=== PATIENT | male | born 1955 | race Two or more races ===

== ENCOUNTER 2018-05-06 14:48 | Emergency (ER) | payer OTHER, BC ==
--- NOTE | 2018-05-06 16:08 | ER Document Report ---
ED Medical Screen (RME) - General Chief Complaint: Arm Pain Stated Complaint: ELBOW PAIN Time Seen by Provider: 05/06/18 16:00 Notes: 62-year-old male patient had his left elbow open for removal of some bone that was rubbing on another bone on 03/31/2018 at the [facility]. Last night he noted some fluid coming out of the surgical wound and this morning some pus draining. I have greeted and performed a rapid initial assessment of this patient. A comprehensive ED assessment and evaluation of the patient, analysis of test results and completion of the medical decision making process will be conducted by additional ED providers. TRAVEL OUTSIDE OF THE [place] IN LAST 30 DAYS: No - Related Data Allergies/Adverse Reactions: Penicillins Adverse Reaction (Verified 05/06/18 16:07) Past Medical History - Social History Chew tobacco use (# tins/day): No Frequency of alcohol use: None Drug Abuse: None - Past Medical History Cardiac Medical History: Reports: Hx Congestive Heart Failure, Hx Hypercholesterolemia, Hx Hypertension Denies: Hx Coronary Artery Disease, Hx Heart Attack Pulmonary Medical History: Denies: Hx Asthma, Hx Bronchitis, Hx COPD, Hx Pneumonia Neurological Medical History: Denies: Hx Cerebrovascular Accident, Hx Seizures Renal/ Medical History: Denies: Hx Peritoneal Dialysis Musculoskeltal Medical History: Reports Hx Arthritis Psychiatric Medical History: Denies: Hx Depression Past Surgical History: Reports: Hx Orthopedic Surgery - Left elbow, Left hip replacement - Immunizations Hx Diphtheria, Pertussis, Tetanus Vaccination: No Physical Exam - Vital signs Vitals: Temp Pulse Resp BP Pulse Ox 97.8 F 77 16 120/53 L 97 05/06/18 14:55 05/06/18 14:55 05/06/18 14:55 05/06/18 14:55 05/06/18 14:55 Course - Vital Signs Vital signs: Temp Pulse Resp BP Pulse Ox 97.8 F 77 16 120/53 L 97 05/06/18 14:55 05/06/18 14:55 05/06/18 14:55 05/06/18 14:55 05/06/18 14:55 Doctor's Discharge - Discharge Referrals: KATERINA SALMERON MD [Primary Care Provider] - Follow up as needed
--- NOTE | 2018-05-06 16:59 | RADIOLOGY REPORT (SQ) ---
EXAM DESCRIPTION: ELBOW LEFT OVER 2 VIEWS COMPLETED DATE/TIME: 05/06/2018 4:45 pm REASON FOR STUDY: Postoperative wound infection COMPARISON: None. NUMBER OF VIEWS: Four views. TECHNIQUE: AP, lateral, and both oblique radiographic images acquired of the left elbow. LIMITATIONS: None. FINDINGS: MINERALIZATION: Normal. BONES: The head of the radius has been resected. JOINT: There appears to be a small joint effusion. SOFT TISSUES: No soft tissue swelling. No foreign body. OTHER: No other significant finding. IMPRESSION: There appears to be a small joint effusion. There is no evidence of osteomyelitis. TECHNICAL DOCUMENTATION: JOB ID: [id number] [employer]- All Rights Reserved Reading location - IP/workstation name: [email or web address]
[2018-05-06 17:55] LABS: ABSOLUTE EOSINOPHILS # (AUTO) 0.3 10^3/uL (0.0-0.6); ABSOLUTE LYMPHOCYTES (AUTO) 2.3 10^3/uL (0.5-4.7); ABSOLUTE MONOCYTES (AUTO) 1.2 10^3/uL (0.1-1.4); ABSOLUTE NEUT (AUTO) 4.6 10^3/uL (1.7-8.2); BASOPHILS % (AUTO) 0.5 % (0-2); EOSINOPHILS % (AUTO) 3.4 % (0-6); HEMATOCRIT 41.7 % (37.9-51.0); HEMOGLOBIN 14.4 g/dL (13.5-17.0); LYMPHOCYTES % (AUTO) 27.2 % (13-45); MEAN CORPUSCULAR HEMOGLOBIN 33.1 pg (27.0-33.4); MEAN CORPUSCULAR HGB CONC 34.6 g/dL (32.0-36.0); MEAN CORPUSCULAR VOLUME 96 fl (80-97); MONOCYTES % (AUTO) 14.4 % (3-13); PLATELET COUNT 242 10^3/uL (150-450); RED BLOOD COUNT 4.35 10^6/uL (4.35-5.55); RED CELL DISTRIBUTION WIDTH 14.2 % (11.5-14.0); SEGMENTED NEUTROPHILS % (AUTO) 54.5 % (42-78); TOTAL CELLS COUNTED % (AUTO) 100 %; WHITE BLOOD COUNT 8.5 10^3/uL (4.0-10.5)
[2018-05-06 18:11] LABS: ALANINE AMINOTRANSFERASE 43 U/L (21-72); ALBUMIN 4.8 g/dL (3.5-5.0); ALKALINE PHOSPHATASE 58 U/L (38-126); ANION GAP 15 (5-19); ASPARTATE AMINO TRANSFERASE 41 U/L (17-59); BILIRUBIN,DIRECT 0.3 mg/dL (0.0-0.4); BILIRUBIN,TOTAL 0.6 mg/dL (0.2-1.3); BLOOD UREA NITROGEN 24 mg/dL (7-20); CALCIUM 9.8 mg/dL (8.4-10.2); CARBON DIOXIDE 22 mmol/L (22-30); CHLORIDE 102 mmol/L (98-107); GLUCOSE 110 mg/dL (75-110); POTASSIUM 4.6 mmol/L (3.6-5.0); SODIUM 139.4 mmol/L (137-145)
[2018-05-06] MEDS ORDERED: DOXYCYCLINE HYCLATE 100 MG TABLET PO ONE (18:46)
--- NOTE | 2018-05-06 18:47 | ER Document Report ---
ED General - General Chief Complaint: Arm Pain Stated Complaint: ELBOW PAIN Time Seen by Provider: 05/06/18 16:00 Notes: Patient is a 62-year-old male who had a partial bone resection of the left elbow in March 2018 who presents with concerns of possible infection over the surgical incisional site along the lateral epicondyle. Patient reports that [facility]. Patient reports that the most proximal aspect of the wound has become swollen and painful. He does report that he is been picking at the area. He has noted purulent drainage from the area. He notes that it is a dull , throbbing, constant pain worsened by touching the area. He has not had fever or constitutional symptoms. He has not yet followed up with his surgeon regarding today's concerns. Symptoms have overall been worsening since onset. Nothing improves the symptoms. TRAVEL OUTSIDE OF THE [place] IN LAST 30 DAYS: No - Related Data Allergies/Adverse Reactions: Penicillins Adverse Reaction (Verified 05/06/18 16:07) Past Medical History - General Information source: Patient - Social History Smoking Status: Former Smoker Chew tobacco use (# tins/day): No Frequency of alcohol use: None Drug Abuse: None Lives with: Alone Family History: Reviewed & Not Pertinent Patient has suicidal ideation: No Patient has homicidal ideation: No - Past Medical History Cardiac Medical History: Reports: Hx Congestive Heart Failure, Hx Hypercholesterolemia, Hx Hypertension Denies: Hx Coronary Artery Disease, Hx Heart Attack Pulmonary Medical History: Denies: Hx Asthma, Hx Bronchitis, Hx COPD, Hx Pneumonia Neurological Medical History: Denies: Hx Cerebrovascular Accident, Hx Seizures Renal/ Medical History: Denies: Hx Peritoneal Dialysis Musculoskeletal Medical History: Reports Hx Arthritis Psychiatric Medical History: Denies: Hx Depression Past Surgical History: Reports: Hx Orthopedic Surgery - Left elbow, Left hip replacement - Immunizations Hx Diphtheria, Pertussis, Tetanus Vaccination: No Review of Systems - Review of Systems Notes: Constitutional: Negative for fever. HENT: Negative for sore throat. Eyes: Negative for visual changes. Cardiovascular: Negative for chest pain. Respiratory: Negative for shortness of breath. Gastrointestinal: Negative for abdominal pain, vomiting or diarrhea. Genitourinary: Negative for dysuria. Musculoskeletal: Negative for back pain. Skin: Positive for left elbow incisional infection Neurological: Negative for headaches, weakness or numbness. 10 point ROS negative except as marked above and in HPI. Physical Exam - Vital signs Vitals: Temp Pulse Resp BP Pulse Ox 97.8 F 77 16 120/53 L 97 05/06/18 14:55 05/06/18 14:55 05/06/18 14:55 05/06/18 14:55 05/06/18 14:55 Interpretation: Normal Notes: PHYSICAL EXAMINATION: GENERAL: Well-appearing, well-nourished and in no acute distress. HEAD: Atraumatic, normocephalic. EYES: Pupils equal round and reactive to light, extraocular movements intact, sclera anicteric, conjunctiva are normal. ENT: nares patent, oropharynx clear without exudates. Moist mucous membranes. NECK: Normal range of motion, supple without lymphadenopathy LUNGS: Breath sounds clear to auscultation bilaterally and equal. No wheezes rales or rhonchi. HEART: Regular rate and rhythm without murmurs ABDOMEN: Soft, nontender, normoactive bowel sounds. No guarding, no rebound. No masses appreciated. EXTREMITIES: Normal range of motion including at the left elbow both actively and passively to full flexion and extension, no pitting or edema. No cyanosis. NEUROLOGICAL: No focal neurological deficits. Moves all extremities spontaneously and on command. PSYCH: Normal mood, normal affect. SKIN: Warm, Dry, normal turgor, there is an overall well healing incisional scar along the left lateral epicondyle with a very small abscess at the most proximal aspect of the wound without surrounding erythema or induration. Course - Re-evaluation Re-evalutation: 05/06/18 18:46 Patient presents with a small point type incisional infection with an associated abscess in the superior aspect of an incisional line over his lateral epicondyle on the left. He has no evidence of a septic joint. No diffuse swelling of the joint. Full flexion and extension without difficulty on active range of motion. Vitals and labs unremarkable. An incision and drainage was performed over the area and a very small amount purulent drainage was expressed. The patient has been started on doxycycline for MRSA coverage. Not a candidate for trimethoprim sulfamethoxazole due to his use of lisinopril and spironolactone. At this time will discharge with return precautions and follow-up recommendations. Verbal discharge instructions given a the bedside and opportunity for questions given. Medication warnings reviewed. Patient is in agreement with this plan and has verbalized understanding of return precautions and the need for primary care follow-up in the next 24-72 hours. - Vital Signs Vital signs: Temp Pulse Resp BP Pulse Ox 97.7 F 87 18 115/77 97 05/06/18 19:01 05/06/18 19:01 05/06/18 19:01 05/06/18 19:01 05/06/18 19:01 - Laboratory Result Diagrams: 05/06/18 17:41 05/06/18 17:41 Laboratory results interpreted by me: 05/06/18 05/06/18 17:41 17:41 RDW 14.2 H Monocytes % 14.4 H BUN 24 H - Diagnostic Test Radiology reviewed: Image reviewed, Reports reviewed Radiology results interpreted by me: 05/07/18 02:47 Left elbow x-ray: No acute fracture Procedures - Incision and Drainage Left Elbow Type: Simple Anesthetic type: 1% Lidocaine mL's of anesthetic: 1 Blade size: 11 I&D procedure: Betadine prep applied Incision Method: Incision made by scalpel Amount/type of drainage: 0.5 cc purulent drainage Discharge - Discharge Clinical Impression: Incisional infection, Incisional abscess, Left elbow pain Condition: Good Disposition: HOME, SELF-CARE Additional Instructions: You were seen for an abscess associated with a old surgical incision site that required drainage. Please clean this area with soap and water twice daily and apply a topical antibiotic. Dress the area after each cleaning. Please return if you develop fever, vomiting, the pain at the site worsens, you notice spreading redness from the area, or you have any other symptoms that are concerning to you. Follow-up with your surgeon in the next 24-48 hours. Take all antibiotics until completed. Prescriptions: Doxycycline Hyclate 100 mg PO BID #14 capsule Referrals: KATERINA SALMERON MD [NO LOCAL MD] - Follow up in 3-5 days
[2018-05-06 19:05] VITALS: BP 115/77
== END 2018-05-06 19:05 | disposition home or self-care (01) ==
LOC: ER 14:48
PROC: 0H9EXZZ Drainage of Left Lower Arm Skin, External Approach (ICD-10-PCS; principal; 2018-05-06)
DX: T81.49XA Infection following a procedure, other surgical site, initial encounter (principal); M25.522 Pain in left elbow; X58.XXXA Exposure to other specified factors, initial encounter; Z87.891 Personal history of nicotine dependence; I10 Essential (primary) hypertension; Z98.890 Other specified postprocedural states
CPT/HCPCS: 36415; 80053; 85025; 87040; 99284

== ENCOUNTER 2018-09-25 11:31 | Emergency (ER) | payer OTHER, BC ==
--- NOTE | 2018-09-25 12:15 | ER Document Report ---
ED Medical Screen (RME) - General Chief Complaint: Syncope Stated Complaint: POSSIBLE SYNCOPE Time Seen by Provider: 09/25/18 12:03 Mode of Arrival: Ambulatory Information source: Patient Notes: Patient is a 63-year-old male who presents to the emergency department with multiple complaints. Complaint #1 is that patient had a syncopal episode last night, states he is not sure how long he was out but woke up on the floor. He reports abrasions to his left forearm and right knee from this fall. Denies any pain in any of his joints and he is able to move all extremities without difficulty. Complaint #2 is ongoing cough and shortness of breath. Patient reports cough is worse when he lies down, patient states he has a history of CHF. [facility] Exam: Abrasion noted to left forearm. Patient alert, oriented, answering all questions. No increased work of breathing, lung sounds are clear and equal bilaterally. I have greeted and performed a rapid initial assessment of this patient. A comprehensive ED assessment and evaluation of the patient, analysis of test results and completion of the medical decision making process will be conducted by additional ED providers. Dictation of this chart was performed using voice recognition software; therefore, there may be some unintended grammatical errors. TRAVEL OUTSIDE OF THE [place] IN LAST 30 DAYS: No - Related Data Allergies/Adverse Reactions: Penicillins Adverse Reaction (Verified 05/06/18 16:07) Past Medical History - Past Medical History Cardiac Medical History: Reports: Hx Congestive Heart Failure, Hx Hypercholesterolemia, Hx Hypertension Denies: Hx Coronary Artery Disease, Hx Heart Attack Pulmonary Medical History: Denies: Hx Asthma, Hx Bronchitis, Hx COPD, Hx Pneumonia Neurological Medical History: Denies: Hx Cerebrovascular Accident, Hx Seizures Renal/ Medical History: Denies: Hx Peritoneal Dialysis Musculoskeltal Medical History: Reports Hx Arthritis Psychiatric Medical History: Denies: Hx Depression Past Surgical History: Reports: Hx Orthopedic Surgery - Left elbow, Left hip replacement - Immunizations Hx Diphtheria, Pertussis, Tetanus Vaccination: No Physical Exam - Vital signs Vitals: Temp Pulse Resp BP Pulse Ox 97.7 F 82 18 108/65 96 09/25/18 11:45 09/25/18 11:45 09/25/18 11:45 09/25/18 11:45 09/25/18 11:45 Course - Vital Signs Vital signs: Temp Pulse Resp BP Pulse Ox 97.7 F 82 18 108/65 96 09/25/18 11:45 09/25/18 11:45 09/25/18 11:45 09/25/18 11:45 09/25/18 11:45
[2018-09-25 12:54] LABS: ABSOLUTE EOSINOPHILS # (AUTO) 0.2 10^3/uL (0.0-0.6); ABSOLUTE MONOCYTES (AUTO) 0.8 10^3/uL (0.1-1.4); ABSOLUTE NEUT (AUTO) 6.6 10^3/uL (1.7-8.2); BASOPHILS % (AUTO) 0.4 % (0-2); EOSINOPHILS % (AUTO) 1.6 % (0-6); HEMATOCRIT 38.9 % (37.9-51.0); HEMOGLOBIN 13.7 g/dL (13.5-17.0); LYMPHOCYTES % (AUTO) 20.6 % (13-45); MEAN CORPUSCULAR HGB CONC 35.2 g/dL (32.0-36.0); MEAN CORPUSCULAR VOLUME 97 fl (80-97); MONOCYTES % (AUTO) 7.9 % (3-13); PLATELET COUNT 251 10^3/uL (150-450); RED BLOOD COUNT 4.02 10^6/uL (4.35-5.55); RED CELL DISTRIBUTION WIDTH 13.9 % (11.5-14.0); SEGMENTED NEUTROPHILS % (AUTO) 69.5 % (42-78); TOTAL CELLS COUNTED % (AUTO) 100 %; WHITE BLOOD COUNT 9.5 10^3/uL (4.0-10.5)
[2018-09-25 13:00] LABS: APPEARANCE,URINE CLEAR; BILIRUBIN,URINE NEGATIVE (NEGATIVE); COLOR,URINE YELLOW; GLUCOSE, URINE NEGATIVE (NEGATIVE); KETONES,URINE NEGATIVE (NEGATIVE); LEUKOCYTE ESTERASE,URINE NEGATIVE (NEGATIVE); NITRITE,URINE NEGATIVE (NEGATIVE); PROTEIN,URINE NEGATIVE (NEGATIVE); URINE SPECIFIC GRAVITY 1.018; UROBILINOGEN,URINE NEGATIVE mg/dL (<2.0)
[2018-09-25 13:03] LABS: ALANINE AMINOTRANSFERASE 36 U/L (21-72); ALBUMIN 4.2 g/dL (3.5-5.0); ALKALINE PHOSPHATASE 57 U/L (38-126); ANION GAP 14 (5-19); ASPARTATE AMINO TRANSFERASE 32 U/L (17-59); BILIRUBIN,DIRECT 0.3 mg/dL (0.0-0.4); BILIRUBIN,TOTAL 0.5 mg/dL (0.2-1.3); BLOOD UREA NITROGEN 18 mg/dL (7-20); CALCIUM 9.4 mg/dL (8.4-10.2); CARBON DIOXIDE 22 mmol/L (22-30); CHLORIDE 104 mmol/L (98-107); GLUCOSE 155 mg/dL (75-110); POTASSIUM 4.1 mmol/L (3.6-5.0); SODIUM 140.1 mmol/L (137-145); TOTAL PROTEIN 7.2 g/dL (6.3-8.2)
--- NOTE | 2018-09-25 13:07 | RADIOLOGY REPORT (SQ) ---
EXAM DESCRIPTION: CT HEAD WITHOUT COMPLETED DATE/TIME: 09/25/2018 12:49 pm REASON FOR STUDY: SYNCOPAL EPISODE COMPARISON: None. TECHNIQUE: Axial images acquired through the brain without intravenous contrast. Images reviewed wi th bone, brain and subdural windows. Images stored on PACS. All CT scanners at this facility use dose modulation, iterative reconstruction, and/or weight based d osing when appropriate to reduce radiation dose to as low as reasonably achievable (ALARA). [facility]: Dose Right [facility]: CareDose [facility]: Dose Right [facility]: Teradose 4D [facility]: Smart Technologies RADIATION DOSE: CT Rad equipment meets quality standard of care and radiation dose reduction techniq ues were employed. CTDIvol: 53.2 mGy. DLP: 1070 mGy-cm.mGy. LIMITATIONS: None. FINDINGS: VENTRICLES: Prominent. CEREBRUM: No mass effect. No hemorrhage. No midline shift. Areas of low density in the white matte r most likely due to chronic micro-vascular ischemic change. No evidence for acute territorial infar ction. CEREBELLUM: No hemorrhage. No alteration of density. No evidence for acute infarction. EXTRAAXIAL SPACES: Age-related involutional change. No fluid collections. ORBITS AND GLOBE: Symmetrical contour of the globes. CALVARIUM: No depressed fracture. PARANASAL SINUSES: Mild mucosal thickening at the bilateral maxillary sinuses and ethmoidal air cells . SOFT TISSUES: No hematoma. IMPRESSION: No acute intracranial hemorrhage or acute territorial infarct. Chronic changes of atrop hy and microvascular ischemia. EVIDENCE OF ACUTE STROKE: NO. TECHNICAL DOCUMENTATION: JOB ID: [id number] [place]-64 Quality ID # [id number]: Final reports with documentation of one or more dose reduction techniques (e.g., Au tomated exposure control, adjustment of the mA and/or kV according to patient size, use of iterative reconstruction technique) 2010 [employer]- All Rights Reserved Reading location - IP/workstation name: [email or web address]
--- NOTE | 2018-09-25 13:14 | RADIOLOGY REPORT (SQ) ---
EXAM DESCRIPTION: CHEST SINGLE VIEW COMPLETED DATE/TIME: 09/25/2018 12:51 pm REASON FOR STUDY: COUGH, SOB, HX OF CHF COMPARISON: Chest x-ray 11/21/2015, 11/19/2015 EXAM PARAMETERS: NUMBER OF VIEWS: One view. TECHNIQUE: Single frontal radiographic view of the chest acquired. RADIATION DOSE: NA LIMITATIONS: None. FINDINGS: LUNGS AND PLEURA: No consolidation, pneumothorax or pleural effusion. MEDIASTINUM AND HILAR STRUCTURES: No masses. Contour normal. HEART AND VASCULAR STRUCTURES: Heart normal in size. No overt vascular congestion. BONES: No acute findings. HARDWARE: None in the chest. IMPRESSION: No acute radiographic finding in the chest. TECHNICAL DOCUMENTATION: JOB ID: [id number] [place]-64 2010 [employer]- All Rights Reserved Reading location - IP/workstation name: [email or web address]
[2018-09-25 13:25] LABS: TROPONIN I 0.042 ng/mL
--- NOTE | 2018-09-25 13:31 | ER Document Report ---
ED Syncope and Near Syncope - General Chief Complaint: Syncope Stated Complaint: POSSIBLE SYNCOPE Time Seen by Provider: 09/25/18 12:03 Mode of Arrival: Ambulatory TRAVEL OUTSIDE OF THE [place] IN LAST 30 DAYS: No - HPI Patient complains to provider of: Fainting Notes: Patient is here with complaints of syncopal episode. The patient states that he was diagnosed with the flu a few weeks ago. He has a history of congestive heart failure. Patient states that last evening he was having a coughing spell and then had a syncopal episode. He woke up on the floor. He denies any chest pain or shortness of breath currently. No fevers. No abdominal pain. No nausea, vomiting, diarrhea. No numbness, tingling, weakness. No fever. No rash. Complains of some abrasions to his left arm. Tetanus is up-to-date. No active bleeding. He is on blood thinning medications. No blurred or loss vision. He denies any neck or back pain. No other complaints at this time. - Related Data Allergies/Adverse Reactions: Penicillins Adverse Reaction (Verified 05/06/18 16:07) Past Medical History - General Information source: Patient - Social History Smoking Status: Former Smoker Family History: Reviewed & Not Pertinent Patient has suicidal ideation: No Patient has homicidal ideation: No - Past Medical History Cardiac Medical History: Reports: Hx Congestive Heart Failure, Hx Hypercholesterolemia, Hx Hypertension Denies: Hx Coronary Artery Disease, Hx Heart Attack Pulmonary Medical History: Denies: Hx Asthma, Hx Bronchitis, Hx COPD, Hx Pneumonia Neurological Medical History: Denies: Hx Cerebrovascular Accident, Hx Seizures Renal/ Medical History: Denies: Hx Peritoneal Dialysis Musculoskeletal Medical History: Reports Hx Arthritis Psychiatric Medical History: Denies: Hx Depression Past Surgical History: Reports: Hx Orthopedic Surgery - Left elbow, Left hip replacement - Immunizations Hx Diphtheria, Pertussis, Tetanus Vaccination: No Review of Systems - Review of Systems -: Yes All other systems reviewed and negative Physical Exam - Vital signs Vitals: Temp Pulse Resp BP Pulse Ox 97.7 F 82 18 108/65 96 09/25/18 11:45 09/25/18 11:45 09/25/18 11:45 09/25/18 11:45 09/25/18 11:45 - Notes Notes: GENERAL: alert, cooperative, nontoxic, no distress. HEAD: normocephalic, atraumatic EYES: conjunctiva pink without discharge, no external redness or swelling. EARS: no external swelling, no external redness NOSE: atraumatic, no external swelling MOUTH/THROAT: mucous membranes moist and pink, posterior pharynx without erythema, swelling, exudate. No trismus or drooling. NECK: soft, supple, full range of motion, no meningismus. CHEST: no distress, lungs clear and equal throughout. No wheezing, rales, rhonchi. CARDIAC: regular rate and rhythm, no murmur, normal capillary refill, normal pulses. No peripheral edema noted. ABDOMEN: Soft, nontender. BACK: full range of motion, no CVA tenderness. EXTREMITIES: full range of motion of all extremities. No redness, no swelling. NEURO: alert and oriented x 3, no focal deficits, full range of motion of all extremities. PYSCH: appropriate mood, affect. Patient is cooperative. SKIN: pink, warm, dry, no rash. Course - Re-evaluation Re-evalutation: 09/25/18 15:09 Patient is resting comfortably at this time. Patient has a negative workup thus far. His troponins are minimally higher than normal, but this is stable for him. EKG is unchanged for any significant ischemic changes. He has no chest pain and has had no chest pain with any of these episodes. Patient denies any recent long trips or surgeries, leg pain or leg swelling, cancer, history of DVT or PE. D-dimer has been ordered to rule out central PE. If d-dimer is negative in this low risk patient, the patient can be discharged home. If d-dimer is positive, CTA of the chest will be ordered. Currently awaiting the results of the d-dimer. I have discussed this with the patient who agrees with the plan. 09/25/18 15:44 Patient's d-dimer is elevated, CTA of the chest has been ordered. 09/25/18 16:42 Patient is nontoxic-appearing with stable vitals. Patient here with complaints of a syncopal episode that occurred last evening after having a coughing spell. There is no chest pain or shortness of breath associated with this. Said no chest pain or shortness of breath today. Troponins are slightly elevated above normal, but stable for the patient. He has had 2 with no rise in the troponin. EKG shows no acute findings. Initial checks x-ray is negative. D-dimer was positive, CTA of the chest was ordered and shows possible left lower lobe pneumonia with no PE. The patient has had a cough for the last several weeks, therefore this is possible to be pneumonia. Patient has an allergy to penicillin. Patient will be given a dose of doxycycline here in emergency department discharged home on doxycycline as well as a prescription for Hycodan to help with his cough. Do believe that his syncopal episode was likely secondary to vagal from cough. Patient will be instructed to follow-up with his primary care doctor at the next available appointment. According to curb 65, the patient is in the low risk group for 30-day mortality and take recommend outpatient treatment for his pneumonia. Patient will be discharged home. Follow-up with his primary care doctor at the next available appointment. Follow-up sooner for any worsening symptoms, high fever, persistent vomiting, difficulty breathing or swallowing, chest pain, syncope, or for any further concerns. - Vital Signs Vital signs: Temp Pulse Resp BP Pulse Ox 97.7 F 82 17 108/69 98 09/25/18 11:45 09/25/18 11:45 09/25/18 15:18 09/25/18 15:18 09/25/18 15:18 - Laboratory Result Diagrams: 09/25/18 12:38 09/25/18 12:38 Laboratory results interpreted by me: 09/25/18 09/25/18 09/25/18 12:38 12:38 12:38 RBC 4.02 L [facility] 34.0 H D-Dimer 1.10 H Glucose 155 H - Diagnostic Test Radiology reviewed: Image reviewed, Reports reviewed - Chest x-ray negative, CTA of the chest shows no PE, left lower lobe pneumonia. - EKG Interpretation by Ar EKG shows normal: Sinus rhythm, [place], ST-T Waves Rate: Normal When compared to previous EKG there are: Other - First-degree AV block, no obvious ST elevation or depression, no obvious STEMI. Discharge - Discharge Clinical Impression: Pneumonia Qualifiers: Pneumonia type: due to unspecified organism Laterality: left Lung location: lower lobe of lung Qualified Code(s): J18.1 - Lobar pneumonia, unspecified organism Syncope Qualifiers: Syncope type: vasovagal syncope Qualified Code(s): R55 - Syncope and collapse Condition: Stable Disposition: HOME, SELF-CARE Instructions: Pneumonia ([facility]), Syncopal Episode ([facility]) Additional Instructions: Take medication as prescribed. Drink plenty fluids. Follow-up with your doctor at the next available appointment for recheck. Follow-up sooner for worsening symptoms, high fever, persistent vomiting, difficulty breathing, chest pain, shortness of breath, passing out, or for any further concerns. Prescriptions: Hydrocodone Bit/Homatropine [Hycodan Syrup 5-1.5 mg/5 ml Ud Cup] 5 ml PO Q4HP PRN #120 ml PRN Reason: Doxycycline Hyclate 100 mg PO BID #20 capsule Referrals: [facility] [Provider Group] - Follow up as needed
--- NOTE | 2018-09-25 16:35 | RADIOLOGY REPORT (SQ) ---
EXAM DESCRIPTION: CTA CHEST COMPLETED DATE/TIME: 09/25/2018 4:12 pm REASON FOR STUDY: syncope COMPARISON: Chest x-ray 09/25/2018, CT angiogram chest 11/19/2015. TECHNIQUE: CT scan of the chest performed using helical scanning technique with dynamic intravenous contrast injection. Images reviewed with lung, soft tissue and bone windows. Reconstructed coronal and sagittal MPR images reviewed. Additional 3 dimensional post-processing performed to develop Maximal Intensity Projection images (MA P). All images stored on PACS. All CT scanners at this facility use dose modulation, iterative reconstruction, and/or weight based d osing when appropriate to reduce radiation dose to as low as reasonably achievable (ALARA). [facility]: Dose Right [facility]: CareDose [facility]: Dose Right [facility]: Teradose 4D [facility]: [email or web address] CONTRAST TYPE AND DOSE: contrast/concentration: Isovue 350.00 mg/ml; Total Contrast Delivered: 78.0 ml; Total Saline Delivered: 80.0 ml Contrast bolus optimized for the pulmonary arteries. Not diagnostic for the aorta. RENAL FUNCTION: Creatinine 0.89 RADIATION DOSE: CT Rad equipment meets quality standard of care and radiation dose reduction techniq ues were employed. CTDIvol: 17.5 - 57.9 mGy. DLP: 702 mGy-cm. . LIMITATIONS: None. FINDINGS: LUNGS AND PLEURA: Nodular ground-glass opacities at the left lower lobe. No pleural effus ion or pneumothorax. AORTA AND GREAT VESSELS: No thoracic aortic aneurysm. Atherosclerotic calcifications are noted at th e thoracic aorta. Contrast bolus not optimized for the aorta. HEART: No pericardial effusion. The heart is enlarged. Coronary artery calcifications are noted. PULMONARY ARTERIES: No emboli visualized in the main pulmonary arteries or the segmental branches. HILAR AND MEDIASTINAL STRUCTURES: Right hilar lymph node is measuring 18 mm in short axis. Subcarina l lymph node is measuring 13 mm in short axis. HARDWARE: None in the chest. UPPER ABDOMEN: There is cholelithiasis. Limited exam. BONES: Multilevel degenerative changes at the spine. 3D MIPS: Confirm above findings. IMPRESSION: 1. No pulmonary emboli. Nodular ground-glass opacities at the left lower lobe, may be secondary to pneumonia. Mild mediastinal and right hilar adenopathy. 2. Cardiomegaly. Coronary arteries calcifications. 3. Cholelithiasis. COMMENT: Quality ID # [id number]: Final reports with documentation of one or more dose reduction techniques (e.g., Automated exposure control, adjustment of the mA and/or kV according to patient size, use of iterative reconstruction technique) TECHNICAL DOCUMENTATION: JOB ID: [id number] 2010 [employer]- All Rights Reserved Reading location - IP/workstation name: [email or web address]
[2018-09-25] MEDS ORDERED: DOXYCYCLINE HYCLATE 100 MG TABLET PO ONE (16:41)
[2018-09-25 17:48] VITALS: BP 123/88
--- NOTE | 2018-09-25 23:45 | EKG REPORT ---
SEVERITY:- ABNORMAL ECG - SINUS RHYTHM FIRST DEGREE AV BLOCK NONSPECIFIC INTRAVENTRICULAR CONDUCTION DELAY CONSIDER ANTERIOR INFARCT : Confirmed by: Fahad Martinez 25-Sep-2018 23:44:15
== END 2018-09-25 17:53 | disposition home or self-care (01) ==
LOC: ER 11:31
DX: J18.1 Lobar pneumonia, unspecified organism (principal); R55 Syncope and collapse; R05 Cough; S40.812A Abrasion of left upper arm, initial encounter; W19.XXXA Unspecified fall, initial encounter; Z87.891 Personal history of nicotine dependence; I11.0 Hypertensive heart disease with heart failure; I50.9 Heart failure, unspecified
CPT/HCPCS: 36415; 70450; 71045; 71275; 80053; 81001; 83880; 84484; 85025; 85379; 93005; 93010; 99284

== ENCOUNTER 2019-11-10 14:52 | Observation (INO) | payer OTHER, BC ==
--- NOTE | 2019-11-10 17:53 | RADIOLOGY REPORT (SQ) ---
EXAM DESCRIPTION: CHEST SINGLE VIEW IMAGES COMPLETED DATE/TIME: 11/10/2019 5:38 pm REASON FOR STUDY: shortness of breath COMPARISON: 09/25/2018 EXAM PARAMETERS: NUMBER OF VIEWS: One view. TECHNIQUE: Single frontal radiographic view of the chest acquired. RADIATION DOSE: NA LIMITATIONS: None. FINDINGS: LUNGS AND PLEURA: Focal opacity in the right lower lung zone may represent infiltrate. T he left lung remains clear. No pneumothorax or pleural effusion. MEDIASTINUM AND HILAR STRUCTURES: No masses. Contour normal. HEART AND VASCULAR STRUCTURES: New finding of cardiomegaly since the previous examination. Mild pul monary vascular congestion is suggested. BONES: No acute findings. HARDWARE: None in the chest. OTHER: No other significant finding. IMPRESSION: 1. Since the previous examination dated 09/25/2018, new finding of cardiomegaly. Mild p ulmonary vascular congestion. 2. Focal opacity in the right lower lung zone may represent infiltrate. TECHNICAL DOCUMENTATION: JOB ID: [id number] 2010 [employer]- All Rights Reserved Reading location - IP/workstation name: [email or web address]
[2019-11-10 18:00] LABS: ABSOLUTE BASOPHILS # (AUTO) 0.1 10^3/uL (0.0-0.2); ABSOLUTE EOSINOPHILS # (AUTO) 0.2 10^3/uL (0.0-0.6); ABSOLUTE LYMPHOCYTES (AUTO) 1.9 10^3/uL (0.5-4.7); ABSOLUTE MONOCYTES (AUTO) 0.4 10^3/uL (0.1-1.4); ABSOLUTE NEUT (AUTO) 2.8 10^3/uL (1.7-8.2); BASOPHILS % (AUTO) 1.7 % (0-2); EOSINOPHILS % (AUTO) 3.6 % (0-6); HEMATOCRIT 42.4 % (37.9-51.0); HEMOGLOBIN 14.4 g/dL (13.5-17.0); LYMPHOCYTES % (AUTO) 35.4 % (13-45); MEAN CORPUSCULAR HEMOGLOBIN 33.3 pg (27.0-33.4); MEAN CORPUSCULAR HGB CONC 34.1 g/dL (32.0-36.0); MEAN CORPUSCULAR VOLUME 98 fl (80-97); MONOCYTES % (AUTO) 6.6 % (3-13); PLATELET COUNT 201 10^3/uL (150-450); RED BLOOD COUNT 4.34 10^6/uL (4.35-5.55); RED CELL DISTRIBUTION WIDTH 15.7 % (11.5-14.0); SEGMENTED NEUTROPHILS % (AUTO) 52.7 % (42-78); TOTAL CELLS COUNTED % (AUTO) 100 %; WHITE BLOOD COUNT 5.4 10^3/uL (4.0-10.5)
[2019-11-10 18:19] LABS: ALBUMIN 4.4 g/dL (3.5-5.0); ALKALINE PHOSPHATASE 67 U/L (38-126); ANION GAP 9 (5-19); ASPARTATE AMINO TRANSFERASE 43 U/L (17-59); BILIRUBIN,TOTAL 0.8 mg/dL (0.2-1.3); BLOOD UREA NITROGEN 19 mg/dL (7-20); CALCIUM 9.4 mg/dL (8.4-10.2); CARBON DIOXIDE 23 mmol/L (22-30); CHLORIDE 103 mmol/L (98-107); GLUCOSE 94 mg/dL (75-110); POTASSIUM 4.3 mmol/L (3.6-5.0); TOTAL PROTEIN 7.6 g/dL (6.3-8.2)
--- NOTE | 2019-11-10 19:25 | ER Document Report ---
ED Respiratory Problem - General Chief Complaint: Shortness Of Breath Stated Complaint: SHORTNESS OF BREATH Time Seen by Provider: 11/10/19 16:18 Notes: Patient is a 64-year-old male who presents emergency department with a chief complaint of shortness of breath. Patient states that his shortness of breath started about a month ago. About 3 weeks ago he was placed on antibiotics by urgent care. He was placed on prednisone, Levaquin, and an albuterol inhaler. He then continued to feel bad and was given more albuterol inhalers when he f ollowed up with urgent care. Patient goes to the [facility]. He states they manage their heart failure. TRAVEL OUTSIDE OF THE [place] IN LAST 30 DAYS: No - Related Data Allergies/Adverse Reactions: Penicillins Adverse Reaction (Verified 05/06/18 16:07) Past Medical History - General Information source: Patient - Social History Smoking Status: Former Smoker Family History: Reviewed & Not Pertinent - Past Medical History Cardiac Medical History: Reports: Hx Congestive Heart Failure, Hx Hypercholesterolemia, Hx Hypertension Denies: Hx Coronary Artery Disease, Hx Heart Attack Pulmonary Medical History: Denies: Hx Asthma, Hx Bronchitis, Hx COPD, Hx Pneumonia Neurological Medical History: Denies: Hx Cerebrovascular Accident, Hx Seizures Renal/ Medical History: Denies: Hx Peritoneal Dialysis Musculoskeletal Medical History: Reports Hx Arthritis Psychiatric Medical History: Denies: Hx Depression Past Surgical History: Reports: Hx Orthopedic Surgery - Left elbow, Left hip replacement - Immunizations Hx Diphtheria, Pertussis, Tetanus Vaccination: No Review of Systems - Review of Systems Notes: REVIEW OF SYSTEMS: CONSTITUTIONAL : Denies recent illness. Denies recent unintentional weight loss. Denies fever, chills, or sweats. EENT: Denies eye, ear, throat, or mouth pain, discharge, or symptoms. Denies nasal or sinus congestion. CARDIOVASCULAR: Denies chest pain. RESPIRATORY: See HPI. GASTROINTESTINAL: Denies nausea, vomiting, and diarrhea. Denies abdominal pain. Denies constipation. GENITOURINARY: Denies difficulty urinating, burning, blood in urine, urgency or frequency. MUSCULOSKELETAL: Denies neck and back pain. Denies joint pain or swelling. SKIN: Denies rash, itchiness, or lesions HEMATOLOGIC : Denies easy bruising or bleeding. LYMPHATIC: Denies swollen, painful, enlarged glands. NEUROLOGICAL: Denies no numbness or tingling denies weakness. Denies headache. Denies altered mental status. Denies alteration in speech. PSYCHIATRIC: Denies stress, anxiety, alteration in sleep patterns, or depression. All other systems reviewed and negative. Physical Exam - Vital signs Vitals: Temp 98.7 F 11/10/19 14:54 - Notes Notes: PHYSICAL EXAMINATION: GENERAL: Appears well, healthy, well-nourished, no acute distress. HEAD: Normocephalic, atraumatic. EYES: PERRL, conjunctiva normal, all extraocular movements intact, sclera nonicteric ENT: Moist mucous membranes. NECK: Supple, no noticeable swelling, redness, rash. Normal range of motion. LUNGS: Equal breath sounds bilaterally and clear to auscultation. No wheezes rales or rhonchi. CARDIOVASCULAR: S1-S2, regular rate, regular rhythm. Occasional irregular beat s. Left bundle branch block noted on EKG. Radial pulses 2+, normal. ABDOMEN: Normoactive bowel sounds. Soft, nontender, no guarding, no rebound tenderness, and no masses palpated. EXTREMITIES: Normal strength and range of motion, no pitting or edema. No cyanosis. NEUROLOGICAL: Moves all extremities upon command. Strength 5/5 in all extremities. PSYCH: Normal mood, normal affect. SKIN: Warm, dry. No rash, lesions, ulcerations noted. Normal skin turgor. Course - Re-evaluation Re-evalutation: 11/10/19 20:05 Chest x-ray shows that there is vascular congestion, consistent with his congestive heart failure and a BNP of 2510. There is a possible infiltrate in the right lower lobe. Hematology is unremarkable. No leukocytosis noted. Chemistries are also unremarkable. Patient has a left bundle branch block. Dis cussed this case with Dr. Richardson, my attending. She reviewed the patient's chest x-ray and labs. We will add a troponin. 11/10/19 21:[address] Deutsch, the hospitalist. The patient will be admitted under observation to the telemetry unit. 11/10/19 21:14 Apparently the patient after Jorge's patient. I asked him once last time he has been to , and he states it has been a long time. 11/10/19 21:[address] Fox. Since the patient has not been seen by in a few years, he is referring to the hospitalist. 11/10/19 21:[address] Deutsch that the patient has not seen in many years and the [place] in [place] is managing his medications. - Vital Signs Vital signs: Temp Pulse Resp BP Pulse Ox 98.1 F 89 16 112/74 100 11/11/19 07:29 11/11/19 07:29 11/11/19 07:29 11/11/19 07:29 11/11/19 07:29 - Laboratory Result Diagrams: 11/11/19 05:39 11/11/19 05:39 Laboratory results interpreted by me: 11/10/19 11/10/19 11/10/19 17:46 17:46 17:46 RBC 4.34 L MCV 98 H RDW 15.7 H Sodium 135.3 L NT-Pro-B Natriuret Pep 2510 H Discharge - Discharge Clinical Impression: Shortness of breath CHF exacerbation Qualifiers: Heart failure type: unspecified Qualified Code(s): I50.9 - Heart failure, unspecified Condition: Stable Disposition: ADMITTED OBSERVATION Admitting Provider: [place] (Hospitalist) Unit Admitted: Telemetry
[2019-11-10] MEDS ORDERED: BUMETANIDE INJ/PF 1 MG/4 ML SDV IV ONE (20:51)
--- NOTE | 2019-11-10 21:29 | EKG REPORT ---
SEVERITY:- ABNORMAL ECG - SINUS RHYTHM MULTIFORM VENTRICULAR PREMATURE COMPLEXES FIRST DEGREE AV BLOCK LEFT BUNDLE BRANCH BLOCK : Confirmed by: Isaias Garrido MD 10-Nov-2019 21:28:32
[2019-11-10] MEDS ORDERED: MAG HYDROX/AL HYDROX/SIMETH SUSP 30 ML UDCUP PO PRN (22:33)
[2019-11-10] MEDS ORDERED: ACETAMINOPHEN 325 MG TABLET PO PRN (22:33)
[2019-11-10] MEDS ORDERED: MAGNESIUM HYDROXIDE SUSP 30 ML UDCUP PO PRN (22:33)
[2019-11-10] MEDS ORDERED: PROMETHAZINE HCL INJ 25 MG/1 ML VIAL IV PRN (22:33)
[2019-11-10] MEDS ORDERED: MORPHINE SULFATE 10 MG/ML INJ IV PRN (22:41)
[2019-11-10] MEDS ORDERED: LORAZEPAM INJ 2 MG/1 ML VIAL IV PRN (22:41)
[2019-11-10] MEDS ORDERED: HYDRALAZINE HCL INJ/PF 20 MG/1 ML SDV IV PRN (22:41)
[2019-11-10] MEDS ORDERED: LISINOPRIL 10 MG TABLET PO SCH (22:45)
[2019-11-10] MEDS ORDERED: CARVEDILOL 6.25 MG TABLET PO SCH (22:45)
[2019-11-10] MEDS ORDERED: RANOLAZINE 500 MG TAB.SR.12H PO SCH (23:00)
[2019-11-11] MEDS ORDERED: NITROGLYCERIN 2% OINTMENT 1 GM PACKET TP SCH
[2019-11-11] MEDS ORDERED: MORPHINE SULFATE 10 MG/ML INJ IV PRN ×3 (00:03)
[2019-11-11] MEDS: FAMOTIDINE 20 MG TABLET PO SCH ×2 (00:14→10:33)
[2019-11-11] MEDS: FUROSEMIDE INJ/PF 40 MG/4 ML SDV IV SCH ×2 (00:14→05:34)
[2019-11-11 00:38] LABS: CREATINE KINASE MB 4.04 ng/mL (<4.55); TROPONIN I 0.089 ng/mL
--- NOTE | 2019-11-11 01:12 | PDOC H&P ---
History of Present Illness Admission Date/PCP: 11/10/19 21:58 [facility] Patient complains of: Dyspnea History of Present Illness: COY BENNETT is a 64 year old male who presented to the emergency room with a 1 month history of dyspnea. He admits developing dyspnea 1 month ago that has persisted despite being treated on 2 separate occasions by urgent care for "pneumonia". His dyspnea is worsened by exertion. He denies other associated or accompanying signs and symptoms. He admits prior similar episodes with congestive heart failure. He has not identified any additional aggravating or ameliorating factors for his dyspnea. In the emergency room he was found to have an elevated BNP and a chest x-ray demonstrating cardiomegaly and vascular congestion. His EKG showed frequent ectopy but was essentially unchanged from his EKG in 2016 which also showed frequent ectopy. He was subsequently admitted to observation status for further evaluation and treatment. Past Medical History Cardiac Medical History: Reports: Congestive Heart Failure, Hyperlipidema, Hypertension Denies: Coronary Artery Disease, Myocardial Infarction Pulmonary Medical History: Reports: Sleep Apnea - CPAP at home Denies: Asthma, Bronchitis, Chronic Obstructive Pulmonary Disease (COPD), Pneumonia EENT Medical History: Denies: Cataracts, Ears - Hearing aids Neurological Medical History: Denies: Hemorrhagic CVA, Ischemic CVA, Seizures Endocrine Medical History: Denies: Diabetes Mellitus Type 1, Diabetes Mellitus Type 2, Hyperthyroidism, Hypothyroidism Renal/ Medical History: Reports: Other - Benign prostatic hyperplasia Denies: Chronic Kidney Disease, Nephrolithiasis Malignancy Medical History: Reports: None GI Medical History: Denies: Cirrhosis, Crohn's Disease, Hepatitis, Hiatal Hernia Musculoskeltal Medical History: Reports: Arthritis - Rheumatoid arthritis Denies: Gout Skin Medical History: Denies: Eczema, Psoriasis Psychiatric Medical History: Denies: Alcohol Dependency, Depression, Substance Abuse, Tobacco Dependency Traumatic Medical History: Reports: None Hematology: Denies: Anemia, Bleeding Tendencies Infectious Medical History: Reports: None Past Surgical History Past Surgical History: Reports: Cardiac Catheterization, Hip Replacement, Orthopedic Surgery - Left elbow surgery Social History Information Source: Patient Lives with: Spouse/Significant other Smoking Status: Former Smoker Electronic Cigarette use?: No Frequency of Alcohol Use: None Hx Recreational Drug Use: No Drugs: None Hx Prescription Drug Abuse: No - Advance Directive Resuscitation Status: Full Code Surrogate healthcare decision maker:: Reyna Emmanuel Family History Family History: Malignancy - Mother. denies: CAD, DM, Hypertension Parental Family History Reviewed: Yes Children Family History Reviewed: No Sibling(s) Family History Reviewed.: Yes Medication/Allergy Home Medications: Dutasteride 1 cap PO DAILY 11/19/15 Fluticasone Propionate [Flovent Diskus 50 mcg] 1 spray NASL DAILY 11/19/15 Folic Acid 1 tab PO DAILY 11/19/15 Methotrexate Sodium [Methotrexate] 6 tab PO ACBRKFST 11/19/15 Baxter-3 Fatty Acids/Fish Oil [Fish Oil 1,000 mg Capsule] 2 cap PO BID 11/19/15 Omeprazole 1 tab PO DAILY 11/19/15 Potassium Chloride [K-Tab ER] 1 tab PO DAILY 11/19/15 Pravastatin Sodium 0.5 tab PO DAILY 11/19/15 Carvedilol [Coreg 6.25 mg Tablet] 6.25 mg PO Q12 #60 tablet 11/22/15 Digoxin [Lanoxin 0.125 mg Tablet] 0.125 mg PO DAILY #30 tablet 11/22/15 Lisinopril [Prinivil 10 mg Tablet] 20 mg PO DAILY #30 tablet 11/22/15 Potassium Chloride [Klor-Con 10 Meq Tablet ER] 10 meq PO DAILY #30 tablet.sa 11/22/15 Ranolazine [Ranexa 500 mg Tab.sr] 500 mg PO Q12 #60 tab.sr.12h 11/22/15 Spironolactone [Aldactone 25 mg Tablet] 25 mg PO DAILY #30 tablet 11/22/15 Tamsulosin HCl [Flomax 0.4 mg Cap.sr] 0.4 mg PO PCSUPPER #30 cap.sr.24h 11/22/15 Aspirin [Aspirin 81 mg Chewable Tablet] 81 mg PO DAILY 04/16/16 Doxycycline Hyclate 100 mg PO BID #14 capsule 05/06/18 Doxycycline Hyclate 100 mg PO BID #20 capsule 09/25/18 Hydrocodone Bit/Homatropine [Hycodan Syrup 5-1.5 mg/5 ml Ud Cup] 5 ml PO Q4HP PRN #120 ml 09/25/18 Allergies/Adverse Reactions: Penicillins Adverse Reaction (Verified 05/06/18 16:07) Review of Systems Constitutional: ABSENT: chills, fever(s) Eyes: ABSENT: visual disturbances, other - Eye pain Ears: ABSENT: hearing changes, other - Ear pain Nose, Mouth, and Throat: ABSENT: headache(s), sore throat Cardiovascular: PRESENT: as per HPI, dyspnea on exertion. ABSENT: chest pain, edema, orthropnea, palpitations Respiratory: PRESENT: as per HPI, dyspnea. ABSENT: cough Gastrointestinal: ABSENT: abdominal pain, constipation, diarrhea, nausea, vomiting Genitourinary: ABSENT: dysuria, hematuria Musculoskeletal: PRESENT: back pain - Chronic. ABSENT: joint swelling Integumentary: ABSENT: pruritus, rash Neurological: ABSENT: confusion, convulsions, focal weakness, memory loss, syncope Psychiatric: ABSENT: anxiety, depression Endocrine: ABSENT: cold intolerance, heat intolerance Hematologic/Lymphatic: ABSENT: easy bleeding, easy bruising Allergic/Immunologic: ABSENT: seasonal rhinorrhea Physical Exam Vital Signs: Temp Pulse Resp BP Pulse Ox 97.6 F 49 L 25 H 130/97 H 92 11/10/19 15:29 11/10/19 15:29 11/10/19 21:00 11/10/19 20:25 11/10/19 21:44 Intake & Output 11/08/19 11/09/19 11/10/19 23:59 23:59 23:59 Weight 86.183 kg General appearance: PRESENT: no acute distress, cooperative Head exam: PRESENT: atraumatic, normocephalic Eye exam: PRESENT: conjunctiva pink. ABSENT: conjunctival injection, scleral icterus Ear exam: PRESENT: normal external ear exam. ABSENT: bleeding, drainage Mouth exam: PRESENT: dry mucosa, neck supple Neck exam: ABSENT: thyromegaly, tracheal deviation Respiratory exam: PRESENT: rales - Fine bibasilar rales noted, symmetrical, unlabored Cardiovascular exam: PRESENT: gallop - S4 gallop rhythm, RRR - With frequent irregular beats. ABSENT: clicks, rubs Pulses: PRESENT: normal radial pulses, normal dorsalis pedis pul Vascular exam: PRESENT: normal capillary refill. ABSENT: pallor GI/Abdominal exam: PRESENT: normal bowel sounds, soft Rectal exam: PRESENT: deferred Extremities exam: ABSENT: joint swelling, pedal edema Musculoskeletal exam: ABSENT: deformity, dislocation Neurological exam: PRESENT: alert, oriented to person, oriented to place, oriented to time, oriented to situation, CN II-XII grossly intact. ABSENT: motor sensory deficit Psychiatric exam: PRESENT: appropriate affect, normal mood Skin exam: PRESENT: dry, intact, warm. ABSENT: jaundice, rash, urticaria Results Laboratory Results: 11/10/19 17:46 11/10/19 17:46 11/10/19 11/10/19 17:46 17:46 WBC 5.4 RBC 4.34 L Hgb 14.4 Hct 42.4 MCV 98 H MCH 33.3 MCHC 34.1 RDW 15.7 H Plt Count 201 Seg Neutrophils % 52.7 Sodium 135.3 L Potassium 4.3 Chloride 103 Carbon Dioxide 23 Anion Gap 9 BUN 19 Creatinine 0.95 Est GFR ( Amer) > 60 Glucose 94 Calcium 9.4 Total Bilirubin 0.8 AST 43 Alkaline Phosphatase 67 Total Protein 7.6 Albumin 4.4 11/10/19 11/10/19 17:46 17:46 Troponin I 0.088 NT-Pro-B Natriuret Pep 2510 H Impressions: Chest X-Ray 11/10/19 16:49 IMPRESSION: 1. Since the previous examination dated 09/25/2018, new finding of cardiomegaly. Mild pulmonary vascular congestion. 2. Focal opacity in the right lower lung zone may represent infiltrate. Assessment and Plan - Diagnosis (1) Acute on chronic systolic (congestive) heart failure Is this a current diagnosis for this admission?: Yes (2) Coronary artery disease Qualifiers: Coronary Disease-Associated Artery/Lesion type: unspecified vessel or lesion type [place] vs. transplanted heart: jena heart Associated angina: without angina Qualified Code(s): I25.10 - Atherosclerotic heart disease of j[place] coronary artery without angina pectoris Is this a current diagnosis for this admission?: Yes (3) Hypertension Qualifiers: Hypertension type: essential hypertension Qualified Code(s): I10 - Essential (primary) hypertension Is this a current diagnosis for this admission?: Yes (4) Hyperlipidemia Qualifiers: Hyperlipidemia type: unspecified Qualified Code(s): E78.5 - Hyperlipidemia, unspecified Is this a current diagnosis for this admission?: Yes (5) Obstructive sleep apnea Is this a current diagnosis for this admission?: Yes (6) Rheumatoid arthritis Qualifiers: Rheumatoid arthritis location: multiple sites Rheumatoid factor presence: unspecified presence Qualified Code(s): M06.9 - Rheumatoid arthritis, unspecified Is this a current diagnosis for this admission?: Yes - Plan Summary Summary: Patient is admitted to the telemetry floor on observation status where he will receive routine supportive and symptomatic cares. He will be treated with Lasix 40 mg IV every 6 hours initially. His medications will be adjusted for more effective control of his congestive heart failure. He will use Ativan 1 mg IV every 4 hours as needed for anxiety or restlessness. He will use morphine sulfate 2 to 4 mg IV every 2 hours as needed for pain using a sliding scale to determine dosage. He will be continued on a cardiac diet. He will receive CPAP at at bedtime and as needed for his obstructive sleep apnea. He will be continued on his usual home meds, as appropriate, after his medication list has been verified and reconciled. CBCs, metabolic profiles, magnesium levels and additional laboratory and/or radiographic diagnostic evaluations to be obtained as appropriate. - Time Time Spent with patient: 15-24 minutes Medications reviewed and adjusted accordingly: Yes Anticipated discharge: Home with Homehealth - Inpatient Certification Based on my medical assessment, after consideration of the patient's comorbidities, presenting symptoms, or acuity I expect that the services needed warrant INPATIENT care.: No I certify that my determination is in accordance with my understanding of Medicare's requirements for reasonable and necessary INPATIENT services [42 CFR 412.3e].: No
[2019-11-11] MEDS ORDERED: TRAMADOL HCL 50 MG TABLET PO PRN (02:42)
[2019-11-11] MEDS ORDERED: HEPARIN SOD (PORCINE) 5,000 UNIT/ML 1 ML VIAL SUBCUT SCH (06:00)
[2019-11-11 06:05] LABS: ABSOLUTE BASOPHILS # (AUTO) 0.1 10^3/uL (0.0-0.2); ABSOLUTE EOSINOPHILS # (AUTO) 0.2 10^3/uL (0.0-0.6); ABSOLUTE LYMPHOCYTES (AUTO) 1.6 10^3/uL (0.5-4.7); ABSOLUTE MONOCYTES (AUTO) 0.4 10^3/uL (0.1-1.4); ABSOLUTE NEUT (AUTO) 4.1 10^3/uL (1.7-8.2); EOSINOPHILS % (AUTO) 2.9 % (0-6); HEMATOCRIT 40.5 % (37.9-51.0); HEMOGLOBIN 14.2 g/dL (13.5-17.0); LYMPHOCYTES % (AUTO) 24.3 % (13-45); MEAN CORPUSCULAR HGB CONC 35.2 g/dL (32.0-36.0); MEAN CORPUSCULAR VOLUME 97 fl (80-97); MONOCYTES % (AUTO) 6.3 % (3-13); PLATELET COUNT 195 10^3/uL (150-450); RED BLOOD COUNT 4.19 10^6/uL (4.35-5.55); RED CELL DISTRIBUTION WIDTH 15.8 % (11.5-14.0); SEGMENTED NEUTROPHILS % (AUTO) 64.5 % (42-78); TOTAL CELLS COUNTED % (AUTO) 100 %; WHITE BLOOD COUNT 6.4 10^3/uL (4.0-10.5)
[2019-11-11 06:28] LABS: ANION GAP 11 (5-19); BLOOD UREA NITROGEN 20 mg/dL (7-20); CALCIUM 9.4 mg/dL (8.4-10.2); CARBON DIOXIDE 23 mmol/L (22-30); CHLORIDE 102 mmol/L (98-107); CHOLESTEROL 157.68 mg/dL (0-200); CREATINE KINASE 129 U/L (55-170); GLUCOSE 147 mg/dL (75-110); POTASSIUM 4.2 mmol/L (3.6-5.0); TRIGLYCERIDES 148 mg/dL (<150)
[2019-11-11 06:39] LABS: CREATINE KINASE MB 3.69 ng/mL (<4.55); DIRECT LDL 102 mg/dL (<100); TROPONIN I 0.08 ng/mL
[2019-11-11 06:45] LABS: FREE T3 4.27 pg/mL (2.77-5.27)
[2019-11-11 07:01] LABS: THYROID STIMULATING HORMONE 2.79 uIU/mL (0.47-4.68)
[2019-11-11] MEDS ORDERED: METHOTREXATE SODIUM 2.5 MG TABLET PO SCH ×2 (08:00→10:00)
[2019-11-11] MEDS ORDERED: POTASSIUM CHLORIDE 10 MEQ TABLET.ER PO SCH (08:00)
[2019-11-11] MEDS ORDERED: CLOPIDOGREL BISULFATE 75 MG TABLET PO SCH (10:00)
[2019-11-11] MEDS ORDERED: CARVEDILOL 6.25 MG TABLET PO SCH (10:00)
[2019-11-11] MEDS ORDERED: FOLIC ACID 1 MG TABLET PO SCH (10:00)
[2019-11-11] MEDS ORDERED: DIGOXIN 0.125 MG TABLET PO SCH (10:00)
[2019-11-11] MEDS ORDERED: DOCUSATE SODIUM 100 MG CAPSULE PO SCH (10:00)
[2019-11-11] MEDS ORDERED: CHOLECALCIFEROL (D3) 1,000 UNIT (25 MCG) TABLET PO SCH (10:00)
[2019-11-11] MEDS ORDERED: SPIRONOLACTONE 25 MG TABLET PO SCH ×2 (10:00)
[2019-11-11] MEDS ORDERED: LOSARTAN POTASSIUM 50 MG TABLET PO SCH (10:00)
--- NOTE | 2019-11-11 10:21 | PDOC DISCHARGE SUMMARY ---
Impression - Admit/DC Date/PCP Admission Date/Primary Care Provider: 11/10/19 21:58 [facility] Discharge Date: 11/11/19 - Discharge Diagnosis (1) Acute on chronic systolic (congestive) heart failure Is this a current diagnosis for this admission?: Yes (2) Coronary artery disease Is this a current diagnosis for this admission?: Yes (3) Hypertension Is this a current diagnosis for this admission?: Yes (4) Hyperlipidemia Is this a current diagnosis for this admission?: Yes (5) Obstructive sleep apnea Is this a current diagnosis for this admission?: Yes (6) Rheumatoid arthritis Is this a current diagnosis for this admission?: Yes - Assessment Summary: Patient is admitted to the telemetry floor on observation status where he will receive routine supportive and symptomatic cares. He will be treated with Lasix 40 mg IV every 6 hours initially. His medications will be adjusted for more effective control of his congestive heart failure. He will use Ativan 1 mg IV every 4 hours as needed for anxiety or restlessness. He will use morphine sulfate 2 to 4 mg IV every 2 hours as needed for pain using a sliding scale to determine dosage. He will be continued on a cardiac diet. He will receive CPAP at at bedtime and as needed for his obstructive sleep apnea. He will be continued on his usual home meds, as appropriate, after his medication list has been verified and reconciled. CBCs, metabolic profiles, magnesium levels and additional laboratory and/or radiographic diagnostic evaluations to be obtained as appropriate. - Additional Information Resuscitation Status: Full Code Discharge Diet: Cardiac Discharge Activity: Balance Activity w/Rest Referrals: XIANG MANUEL MD [NO LOCAL MD] - (We will make an appointment for you and contact you with the date and time. Thank you and have a wonderful day!) [facility] [Primary Care Provider] - (The [place] appointment system is unavailable. Please call and schedule a follow-up appointment during normal business hours. You will need to to call prior to your appointment.) Prescriptions: Furosemide [Lasix 40 mg Tablet] 40 mg PO DAILY #30 tablet Potassium Chloride 10 meq PO DAILY #30 tablet.er Home Medications: Folic Acid 1 tab PO DAILY 11/19/15 Carvedilol [Coreg 6.25 mg Tablet] 6.25 mg PO Q12 #60 tablet 11/22/15 Spironolactone [Aldactone 25 mg Tablet] 25 mg PO DAILY #30 tablet 11/22/15 Aspirin [Aspirin 81 mg Chewable Tablet] 81 mg PO DAILY 04/16/16 Atorvastatin Calcium [Lipitor 40 mg Tablet] 40 mg PO QHS 11/11/19 Cholecalciferol (Vitamin D3) [Vitamin D3] 1,000 unit PO DAILY 11/11/19 Furosemide [Lasix 40 mg Tablet] 40 mg PO DAILY #30 tablet 11/11/19 Losartan Potassium 1.5 tab PO DAILY 11/11/19 Methotrexate Sodium [Rheumatrex 2.5 mg Tablet] 10 tab PO ASDIR PRN 11/11/19 Potassium Chloride 10 meq PO DAILY #30 tablet.er 11/11/19 Tamsulosin HCl [Flomax 0.4 mg Cap.sr] 0.4 mg PO PCSUPPER cap.sr.24h 11/11/19 Tramadol HCl [Ultram 50 mg Tablet] 50 mg PO QID PRN 11/11/19 History of Present Illiness History of Present Illness: COY BENNETT is a 64 year old male who presented to the emergency room with a 1 month history of dyspnea. He admits developing dyspnea 1 month ago that has persisted despite being treated on 2 separate occasions by urgent care for "pneumonia". His dyspnea is worsened by exertion. He denies other associated or accompanying signs and symptoms. He admits prior similar episodes with congestive heart failure. He has not identified any additional aggravating or ameliorating factors for his dyspnea. In the emergency room he was found to have an elevated BNP and a chest x-ray demonstrating cardiomegaly and vascular congestion. His EKG showed frequent ectopy but was essentially unchanged from his EKG in 2016 which also showed frequent ectopy. He was subsequently admitted to observation status for further evaluation and treatment. Hospital Course Hospital Course: Unremarkable. Responded well to increased dose of Lasix. Physical Exam Vital Signs: Temp Pulse Resp BP Pulse Ox 98.1 F 89 16 112/74 100 11/11/19 07:29 11/11/19 07:29 11/11/19 07:29 11/11/19 07:29 11/11/19 07:29 Intake & Output 11/10/19 11/11/19 11/12/19 06:59 06:59 06:59 Output Total 725 Balance -725 Weight 87.7 kg General appearance: PRESENT: no acute distress, cooperative Respiratory exam: PRESENT: clear to auscultation isidro, symmetrical, unlabored. ABSENT: rales, rhonchi, tachypnea, wheezes Cardiovascular exam: PRESENT: RRR - With occasional irregular beats, +S1, +S2, systolic murmur GI/Abdominal exam: PRESENT: normal bowel sounds, soft. ABSENT: distended, guarding, tenderness Results Laboratory Results: WBC 6.4 10^3/uL (4.0-10.5) 11/11/19 05:39 RBC 4.19 10^6/uL (4.35-5.55) L 11/11/19 05:39 Hgb 14.2 g/dL (13.5-17.0) 11/11/19 05:39 Hct 40.5 % (37.9-51.0) 11/11/19 05:39 MCV 97 fl (80-97) 11/11/19 05:39 MCH 34.0 pg (27.0-33.4) H 11/11/19 05:39 MCHC 35.2 g/dL (32.0-36.0) 11/11/19 05:39 RDW 15.8 % (11.5-14.0) H 11/11/19 05:39 Plt Count 195 10^3/uL (150-450) 11/11/19 05:39 Lymph % (Auto) 24.3 % (13-45) 11/11/19 05:39 Garden % (Auto) 6.3 % (3-13) 11/11/19 05:39 Eos % (Auto) 2.9 % (0-6) 11/11/19 05:39 Baso % (Auto) 2.0 % (0-2) 11/11/19 05:39 Absolute Neuts (auto) 4.1 10^3/uL (1.7-8.2) 11/11/19 05:39 Absolute Lymphs (auto) 1.6 10^3/uL (0.5-4.7) 11/11/19 05:39 Absolute Monos (auto) 0.4 10^3/uL (0.1-1.4) 11/11/19 05:39 Absolute Eos (auto) 0.2 10^3/uL (0.0-0.6) 11/11/19 05:39 Absolute Basos (auto) 0.1 10^3/uL (0.0-0.2) 11/11/19 05:39 Seg Neutrophils % 64.5 % (42-78) 11/11/19 05:39 Sodium 136.3 mmol/L (137-145) L 11/11/19 05:39 Potassium 4.2 mmol/L (3.6-5.0) 11/11/19 05:39 Chloride 102 mmol/L (98-107) 11/11/19 05:39 Carbon Dioxide 23 mmol/L (22-30) 11/11/19 05:39 Anion Gap 11 (5-19) 11/11/19 05:39 BUN 20 mg/dL (7-20) 11/11/19 05:39 Creatinine 1.01 mg/dL (0.52-1.25) 11/11/19 05:39 Est GFR ( Amer) > 60 (>60) 11/11/19 05:39 Est GFR (MDRD) Non-Af > 60 (>60) 11/11/19 05:39 Glucose 147 mg/dL (75-110) H 11/11/19 05:39 Calcium 9.4 mg/dL (8.4-10.2) 11/11/19 05:39 Magnesium 2.0 mg/dL (1.6-2.3) 11/11/19 05:39 Total Bilirubin 0.8 mg/dL (0.2-1.3) 11/10/19 17:46 Direct Bilirubin 0.0 mg/dL (0.0-0.4) 11/10/19 17:46 Neonat Total Bilirubin Not Reportable 11/10/19 17:46 Neonat Direct Bilirubin Not Reportable 11/10/19 17:46 Neonat Indirect Bili Not Reportable 11/10/19 17:46 AST 43 U/L (17-59) 11/10/19 17:46 ALT 28 U/L (<50) 11/10/19 17:46 Alkaline Phosphatase 67 U/L (38-126) 11/10/19 17:46 Creatine Kinase 129 U/L (55-170) 11/11/19 05:39 CK-MB (CK-2) 3.69 ng/mL (<4.55) 11/11/19 05:39 Troponin I 0.080 ng/mL 11/11/19 05:39 NT-Pro-B Natriuret Pep 2510 pg/mL (<125) H 11/10/19 17:46 Total Protein 7.6 g/dL (6.3-8.2) 11/10/19 17:46 Albumin 4.4 g/dL (3.5-5.0) 11/10/19 17:46 Triglycerides 148 mg/dL (<150) 11/11/19 05:39 Cholesterol 157.68 mg/dL (0-200) 11/11/19 05:39 LDL Cholesterol Direct 102 mg/dL (<100) H 11/11/19 05:39 VLDL Cholesterol 30.0 mg/dL (10-31) 11/11/19 05:39 HDL Cholesterol 32 mg/dL (>40) L 11/11/19 05:39 TSH 2.79 uIU/mL (0.47-4.68) 11/11/19 05:39 Free T3 pg/mL 4.27 pg/mL (2.77-5.27) 11/11/19 05:39 11/10/19 11/10/19 11/10/19 17:46 17:46 23:51 CK-MB (CK-2) 4.04 Troponin I 0.088 0.089 NT-Pro-B Natriuret Pep 2510 H 11/11/19 05:39 CK-MB (CK-2) 3.69 Troponin I 0.080 NT-Pro-B Natriuret Pep Impressions: Chest X-Ray 11/10/19 16:49 IMPRESSION: 1. Since the previous examination dated 09/25/2018, new finding of cardiomegaly. Mild pulmonary vascular congestion. 2. Focal opacity in the right lower lung zone may represent infiltrate. Plan Health Concerns: Worsening of heart failure Plan of Treatment: Temporarily increase Lasix and add potassium supplement. Follow-up with cardiology and primary care Goals: Better control of heart failure Time Spent: Greater than 30 Minutes Stroke Is this a Stroke Patient?: No Acute Heart Failure - Is this a Heart Failure Patient?: Yes Documentation of LVEF assessment?: Planned for after discharge LVEF: LVEF Greater Than 40% - No echocardiogram on record. Plan for after discharge. Anticoagulant Therapy: N/A Discharged on Evidence-Based Beta Blockers: Yes Discharged on ARNI?: No-Document Contraindications Reason(s) not discharged on ARNI: Other - Discharged on ARB ARNI Reason - Other: Discharged on ARB Discharged on ARB?: Yes Discharged on ACEI?: N/A Discharged on ARB For LVEF <35%, discharged on Aldosterone Antagonist?: Yes Follow-up Appointment scheduled within 7 days?: Yes
[2019-11-11 10:39] VITALS: BP 101/70
[2019-11-11] MEDS ORDERED: TAMSULOSIN HCL 0.4 MG CAP.SR.24H PO SCH (18:00)
[2019-11-11] MEDS ORDERED: ATORVASTATIN CALCIUM 40 MG TABLET PO SCH (22:00)
== END 2019-11-11 11:20 | disposition home or self-care (01) ==
LOC: ER 14:52 → EH 21:58 → 4W 23:19
PROVIDERS: ADMIT Emergency Medicine; ATTEND Hospitalist
DX: I11.0 Hypertensive heart disease with heart failure (principal); I50.23 Acute on chronic systolic (congestive) heart failure; I25.10 Atherosclerotic heart disease of native coronary artery without angina pectoris; E78.5 Hyperlipidemia, unspecified; G47.33 Obstructive sleep apnea (adult) (pediatric); M06.89 Other specified rheumatoid arthritis, multiple sites; N40.0 Benign prostatic hyperplasia without lower urinary tract symptoms; G89.29 Other chronic pain; M54.9 Dorsalgia, unspecified; I44.7 Left bundle-branch block, unspecified; Z79.899 Other long term (current) drug therapy; Z79.82 Long term (current) use of aspirin; Z87.891 Personal history of nicotine dependence
CPT/HCPCS: 93005; 99285; 96374; 36415 ×2; 82553 ×2; 82550 ×2; 83735; 84443; 85025 ×2; 80048; 80053; 84484 ×2; 84481; 80061; 83880; 71045; 93010; G0378 ×2; J3490; J1940

== ENCOUNTER → 2019-11-21 | Outpatient (CLI) | payer OTHER, BC ==
--- NOTE | 2019-11-21 18:59 | RADIOLOGY REPORT (SQ) ---
EXAM DESCRIPTION: FOOT LEFT COMPLETE IMAGES COMPLETED DATE/TIME: 11/21/2019 5:13 pm REASON FOR STUDY: M84.375A STRESS FRACTURE, LEFT FOOT, INITIAL ENCOUNTER FOR FRACTURE M84.375A STRE SS FRACTURE, LEFT FOOT, INITIAL ENCOUNTER FOR F COMPARISON: None. NUMBER OF VIEWS: Three views. TECHNIQUE: AP, lateral and oblique radiographic images acquired of the left foot. LIMITATIONS: None. FINDINGS: MINERALIZATION: Normal. BONES: No acute fracture or dislocation. No worrisome bone lesions. JOINTS: No effusions. SOFT TISSUES: No soft tissue swelling. No foreign body. OTHER: No other significant finding. IMPRESSION: NEGATIVE STUDY OF THE LEFT FOOT. NO RADIOGRAPHIC EVIDENCE OF ACUTE INJURY. TECHNICAL DOCUMENTATION: JOB ID: [id number] 2010 [employer]- All Rights Reserved Reading location - IP/workstation name: [email or web address]
== END ==
LOC: RAD 16:24
PROVIDERS: ATTEND Podiatrist Foot & Ankle Surgery
DX: M84.375A Stress fracture, left foot, initial encounter for fracture (principal)

== ENCOUNTER 2020-06-19 15:19 | Emergency (ER) | payer OTHER, BC ==
--- NOTE | 2020-06-19 15:32 | ER Document Report ---
ED Medical Screen (RME) - General Stated Complaint: CHEST PAIN Time Seen by Provider: 06/19/20 15:26 Primary Care Provider: VERONA BRUNNER MD [Primary Care Provider] - Follow up as needed Mode of Arrival: Wheelchair Information source: Patient, Relative Notes: HPI; 65-year-old male past medical history significant for hypertension, rheumatoid arthritis, LVAD presents to the emergency room complaining of general fatigue and weakness for the past week. States he gets short of breath with any type of exertion. He denies any chest pain. PE: Alert and oriented x3. Lungs: Clear to auscultation without rales, rhonchi, wheezes. Heart: Tachycardic without murmurs, rubs, gallops. Patient is jaundiced. Denies any history of liver disease. I have greeted and performed a rapid initial assessment of this patient. A comprehensive ED assessment and evaluation of the patient, analysis of test results and completion of the medical decision making process will be conducted by additional ED providers. I have specifically instructed the patient or family members with the patient to immediately return to any nursing staff should anything change in the patient's condition or with their chief complaint. TRAVEL OUTSIDE OF THE [place] IN LAST 30 DAYS: No - Related Data Allergies/Adverse Reactions: Penicillins Adverse Reaction (Verified 06/19/20 15:30) Past Medical History - Past Medical History Cardiac Medical History: Reports: Hx Congestive Heart Failure, Hx Hypercholesterolemia, Hx Hypertension Denies: Hx Coronary Artery Disease, Hx Heart Attack Pulmonary Medical History: Reports: Hx Sleep Apnea - CPAP at home Denies: Hx Asthma, Hx Bronchitis, Hx COPD, Hx Pneumonia Neurological Medical History: Denies: Hx Cerebrovascular Accident, Hx Seizures Endocrine Medical History: Denies: Hx Diabetes Mellitus Type 1, Hx Diabetes Mellitus Type 2, Hx Hyperthyroidism, Hx Hypothyroidism Renal/ Medical History: Denies: Hx Peritoneal Dialysis GI Medical History: Denies: Hx Cirrhosis, Hx Crohn's Disease, Hx Hepatitis, Hx Hiatal Hernia Musculoskeltal Medical History: Reports Hx Arthritis, Denies Hx Gout Skin Medical History: Denies Hx Eczema, Denies Hx Psoriasis Psychiatric Medical History: Denies: Hx Depression Infectious Medical History: Denies: Hx Hepatitis Past Surgical History: Reports: Hx Cardiac Catheterization, Hx Orthopedic Surgery - Left elbow, Left hip replacement - Immunizations Hx Diphtheria, Pertussis, Tetanus Vaccination: No Doctor's Discharge - Discharge Referrals: VERONA BRUNNER MD [Primary Care Provider] - Follow up as needed
[2020-06-19 16:40] LABS: ABSOLUTE MONOCYTES (AUTO) 0.6 10^3/uL (0.1-1.4); EOSINOPHILS % (AUTO) 0.1 % (0-6); TOTAL CELLS COUNTED % (AUTO) 100 %
[2020-06-19 16:45] LABS: ABSOLUTE BASOPHILS # (AUTO) 0.1 10^3/uL (0.0-0.2); ABSOLUTE LYMPHOCYTES (AUTO) 1.3 10^3/uL (0.5-4.7); ABSOLUTE NEUT (AUTO) 6.1 10^3/uL (1.7-8.2); BASOPHILS % (AUTO) 0.8 % (0-2); HEMATOCRIT 32.1 % (37.9-51.0); LYMPHOCYTES % (AUTO) 16.2 % (13-45); MEAN CORPUSCULAR HGB CONC 34.4 g/dL (32.0-36.0); MEAN CORPUSCULAR VOLUME 87 fl (80-97); MONOCYTES % (AUTO) 7.5 % (3-13); PLATELET COUNT 259 10^3/uL (150-450); RED BLOOD COUNT 3.67 10^6/uL (4.35-5.55); RED CELL DISTRIBUTION WIDTH 18.3 % (11.5-14.0); SEGMENTED NEUTROPHILS % (AUTO) 75.4 % (42-78)
--- NOTE | 2020-06-19 16:53 | RADIOLOGY REPORT (SQ) ---
EXAM DESCRIPTION: CHEST SINGLE VIEW IMAGES COMPLETED DATE/TIME: 06/19/2020 4:09 pm REASON FOR STUDY: weakness COMPARISON: 11/10/2019. EXAM PARAMETERS: NUMBER OF VIEWS: One view. TECHNIQUE: Single frontal radiographic view of the chest acquired. RADIATION DOSE: NA LIMITATIONS: None. FINDINGS: LUNGS AND PLEURA: Questionable hazy opacity in the lungs. No lobar infiltrates. No pleur al effusion. No pneumothorax MEDIASTINUM AND HILAR STRUCTURES: No masses. Contour normal. HEART AND VASCULAR STRUCTURES: Heart upper limits of normal in size. Normal vasculature. BONES: No acute findings. HARDWARE: Left ventricular assist device. Sternotomy wires and atrial clip. OTHER: No other significant finding. IMPRESSION: QUESTIONABLE HAZY OPACITY IN THE LUNGS. CANNOT EXCLUDE UNDERLYING ATYPICAL PNEUMONIA. NO OTHER ACUTE FINDINGS. TECHNICAL DOCUMENTATION: JOB ID: [id number] 2010 [employer]- All Rights Reserved Reading location - IP/workstation name: [email or web address]
[2020-06-19 16:56] LABS: ALBUMIN 3.8 g/dL (3.5-5.0); ALKALINE PHOSPHATASE 67 U/L (38-126); AMYLASE 154 U/L (30-110); ANION GAP 11 (5-19); ASPARTATE AMINO TRANSFERASE 133 U/L (17-59); BILIRUBIN,DIRECT 0.4 mg/dL (0.0-0.4); BILIRUBIN,TOTAL 1.2 mg/dL (0.2-1.3); BLOOD UREA NITROGEN 16 mg/dL (7-20); CALCIUM 8.1 mg/dL (8.4-10.2); CARBON DIOXIDE 19 mmol/L (22-30); CHLORIDE 100 mmol/L (98-107); GLUCOSE 95 mg/dL (75-110); TOTAL PROTEIN 7.4 g/dL (6.3-8.2)
--- NOTE | 2020-06-19 17:15 | ER Document Report ---
ED General - General Chief Complaint: Chest Pain Stated Complaint: CHEST PAIN Time Seen by Provider: 06/19/20 15:26 Primary Care Provider: VERONA BRUNNER MD [NO LOCAL MD] - Follow up as needed Mode of Arrival: Wheelchair TRAVEL OUTSIDE OF THE [place] IN LAST 30 DAYS: No - HPI Notes: 65-year-old male presents with generalized fatigue, generalized weakness, nausea, shortness of breath when attempting to ambulate x1 week. Denies chest pain. Denies vomiting or abdominal pain. Patient has an LVAD, placed in December 2019 with [facility], daughter at bedside states that they did touch base with the LVAD coordinator today and were advised to go to the emergency department. Patient reports compliance with his medications, though notes he has not taken his warfarin today as an INR needs to be checked. Patient had a "slight fever 2 days ago, daughter is unsure of the temperature but this was taken by the home health nurse. Patient's is currently sick with a respiratory illness, she was prescribed doxycycline and a prescription for doxycycline was also sent in for the patient today, he has not picked up/taken this medication. Patient reports he is here to get Covid tested. Daughter also mentions that at triage the nurse mentioned that he seemed yellow, she agrees that may be his skin tone is off. - Related Data Allergies/Adverse Reactions: Penicillins Adverse Reaction (Verified 06/19/20 15:30) Past Medical History - General Information source: Patient, Relative - Social History Smoking Status: Former Smoker Family History: Reviewed & Not Pertinent Patient has homicidal ideation: No - Past Medical History Cardiac Medical History: Reports: Hx Congestive Heart Failure, Hx Hypercholesterolemia, Hx Hypertension Denies: Hx Coronary Artery Disease, Hx Heart Attack Pulmonary Medical History: Reports: Hx Sleep Apnea - CPAP at home Denies: Hx Asthma, Hx Bronchitis, Hx COPD, Hx Pneumonia Neurological Medical History: Denies: Hx Cerebrovascular Accident, Hx Seizures Endocrine Medical History: Denies: Hx Diabetes Mellitus Type 1, Hx Diabetes Mellitus Type 2, Hx Hyperthyroidism, Hx Hypothyroidism Renal/ Medical History: Denies: Hx Peritoneal Dialysis GI Medical History: Denies: Hx Cirrhosis, Hx Crohn's Disease, Hx Hepatitis, Hx Hiatal Hernia Musculoskeletal Medical History: Reports Hx Arthritis, Denies Hx Gout Skin Medical History: Denies Hx Eczema, Denies Hx Psoriasis Psychiatric Medical History: Denies: Hx Depression Infectious Medical History: Denies: Hx Hepatitis Past Surgical History: Reports: Hx Cardiac Catheterization, Hx Orthopedic Surgery - Left elbow, Left hip replacement - Immunizations Hx Diphtheria, Pertussis, Tetanus Vaccination: No Review of Systems - Review of Systems Constitutional: Fever EENT: No symptoms reported Cardiovascular: denies: Chest pain Respiratory: Short of breath Gastrointestinal: Nausea. denies: Abdominal pain, Diarrhea, Vomiting Genitourinary: No symptoms reported Male Genitourinary: No symptoms reported Musculoskeletal: No symptoms reported Skin: Change in color Hematologic/Lymphatic: No symptoms reported Neurological/Psychological: Weakness - Generalized Physical Exam - Vital signs Vitals: Pulse Pulse Ox 99 98 06/19/20 20:54 06/19/20 20:54 - General General appearance: Appears well, Alert In distress: None - HEENT Head: Normocephalic, Atraumatic Eyes: No: Scleral icterus Extraocular movements intact: Yes Pupils: PERRL Neck: Supple - Respiratory Respiratory status: No: Labored, Tachypnea Breath sounds: Rhonchi - Coarse at bases - Cardiovascular Notes: Mechanical hum of LVAD, can intermittently hear [place] beats - Abdominal Distension: No distension Bowel sounds: Normal Tenderness: Nontender - Extremities General lower extremity: No: Edema - Neurological Neuro grossly intact: Yes Cognition: Normal Orientation: AAOx4 - Psychological Associated symptoms: Flat affect - Skin Skin Temperature: Warm Skin Color: negative: Jaundiced Course - Re-evaluation Re-evalutation: 65-year-old male history CHF with LVAD placement December 2019, follows with Ruddy here for generalized weakness/fatigue, dyspnea on exertion and nausea x1 week. Apparently his is also sick with a respiratory illness, though has not been Covid tested per our discussion. Patient denies chest pain. On exam he is alert and nontoxic appearing, mechanical hum of LVAD, he appears to be well perfused. Per daughter there have not been any alerts such as low flow from the machine. He does have some coarse rhonchi at bases. Sats appropriate on room air, no oxygen requirement. He has no lower extremity edema. I do not appreciate overt jaundice to eyes, under tongue or skin. He has no abdominal tenderness. It is possible that he might have Covid infection versus other viral illness. At risk for electrolyte abnormalities. Possible might be having some hemolysis due to the LVAD which may account for the perceived change in color. He will go undergo laboratory evaluation. Patient with resistance to treatment, he is refusing IV placement or really any other further invasive testing. 06/19/20 20:14 +COVID, patient and daughter updated No leukocytosis or left shift. Hemoglobin 11, last reported value 14. Platelets within normal limits. Subtherapeutic INR 1.94. Slight hyponatremia. T bili is within normal limits. There is a slight elevation of LDH, possible he is having some degree of hemolysis from the LVAD. Troponin and BNP are lower than his previous values. Elevation of lipase and LFTs, suspect due to viral infection, had no abdominal tenderness. Chest x-ray with hazy opacities concerning for Covid. 06/19/20 20:20 [facility] called, paged to LVAD coordinator placed 06/19/20 20:40 I discussed with the LVAD coordinator Em Justice NP. We discussed patient's work-up and Covid diagnosis. Given that he has no oxygen requirement he is appropriate for discharge home. She does not believe there is any specific Covid regimen for his patients. We discussed the subtherapeutic INR, she will arrange the [facility] clinic to call him in the morning. Discussed that he only very strict return precautions that if he comes sicker he will need to return the emergency department and or [facility] for evaluation. 06/19/20 20:49 I updated patient and his daughter on conversation with [facility]. Patient remains stable, well-appearing, 98% on room air. We discussed very strict return precautions. Also discussed symptomatic care. Stable at time of discharge. - Vital Signs Vital signs: Temp Pulse Resp BP Pulse Ox 99 98 06/19/20 20:54 06/19/20 20:54 - Laboratory Results Result Diagrams: 06/19/20 16:20 06/19/20 16:20 Laboratory Results Interpreted: 06/19/20 06/19/20 06/19/20 16:20 16:20 16:20 RBC 3.67 L Hgb 11.0 L Hct 32.1 L RDW 18.3 H PT 22.2 H Sodium 129.7 L Carbon Dioxide 19 L Calcium 8.1 L Magnesium AST 133 H ALT 73 H Lactate Dehydrogenase NT-Pro-B Natriuret Pep Amylase 154 H Lipase 683.6 H 06/19/20 06/19/20 16:20 16:20 RBC Hgb Hct RDW PT Sodium Carbon Dioxide Calcium Magnesium 2.4 H AST ALT Lactate Dehydrogenase 536 H NT-Pro-B Natriuret Pep 1850 H Amylase Lipase Critical Laboratory Results Reviewed: No Critical Results - Radiology Results Critical Radiology Results Reviewed: No Critical Results - EKG Interpretation by Me Additional EKG results interpreted by me: EKG has interpreted by me. Overall very poor quality due to his LVAD. He has an irregular rhythm, it is not tachycardic. Appears to have widened QRS. G rossly no ST segment elevation. Discharge - Discharge Clinical Impression: COVID-19 virus detected, LVAD (left ventricular assist device) present, Subtherapeutic international normalized ratio (INR) Disposition: HOME, SELF-CARE Additional Instructions: You should be receiving a call tomorrow from the coagulation clinic to discuss warfarin dosing as your INR was low today. Please take your nighttime dose of warfarin as prescribed. You should begin taking a vitamin D, vitamin D and zinc supplementation. These are often available in multivitamins or products such as Zicam or Emergen-C. Can take ibuprofen and Tylenol for fever, may also take other [id number] medicines such as Mucinex or Robitussin for further symptomatic control. Do not take the doxycycline as this interferes with warfarin. Please seek evaluation immediately for worsening of symptoms. Referrals: VERONA BRUNNER MD [NO LOCAL MD] - Follow up as needed
[2020-06-19 18:09] LABS: INTERNATIONAL RATION (INR) 1.94; PROTHROMBIN TIME 22.2 SEC (11.4-15.4)
--- NOTE | 2020-06-19 23:41 | EKG REPORT ---
SEVERITY:- DEFECTIVE ECG - TECHNICALLY POOR TRACING - PLEASE REPEAT ECG! POSSIBLE ATRIAL FIBRILLATION, V-RATE 82-109 MULTIFORM VENTRICULAR PREMATURE COMPLEXES NONSPECIFIC INTRAVENTRICULAR CONDUCTION DELAY LOW VOLTAGE THROUGHOUT BORDERLINE R WAVE PROGRESSION, ANTERIOR LEADS : Confirmed by: Fahad Martinez 19-Jun-2020 23:41:00
== END 2020-06-19 21:17 | disposition home or self-care (01) ==
LOC: ER 15:19
DX: U07.1 COVID-19 (principal); I11.0 Hypertensive heart disease with heart failure; I50.9 Heart failure, unspecified; Z95.811 Presence of heart assist device; R53.83 Other fatigue; R53.1 Weakness; R06.02 Shortness of breath; R11.0 Nausea; I49.9 Cardiac arrhythmia, unspecified; Z79.01 Long term (current) use of anticoagulants
CPT/HCPCS: 93005; 99285; 36415; 82150; 83615; 83690; 83735; 84100; 85025; 85610; 0241U ×4; 80053; 84484; 83880; 71045; 93010; C9803

== ENCOUNTER 2020-07-03 15:41 | Emergency (ER) | payer OTHER, BC ==
--- NOTE | 2020-07-03 15:59 | ER Document Report ---
ED Medical Screen (RME) - General Chief Complaint: General Weakness Stated Complaint: SHORTNESS OF BREATH Time Seen by Provider: 07/03/20 15:50 Primary Care Provider: YANNICK,LUANN [Primary Care Provider] - Follow up as needed Mode of Arrival: Ambulatory Information source: Patient TRAVEL OUTSIDE OF THE [place] IN LAST 30 DAYS: No - HPI Patient complains to provider of: Shortness of breath, fatigue Notes: 07/03/20 15:58 Patient here with complaints of feeling short of breath. The patient has an LVAD in place. Patient was diagnosed with Covid few weeks ago. He states that he is having exertional dyspnea. He denies any chest pain. No fever. Also complains of generalized fatigue. Exam: Nontoxic, no distress. Lungs clear and equal throughout. Mechanical pump sounds present consistent with LVAD. No peripheral edema. An initial examination was made on the patient as part of the triage process, and it was determined a more comprehensive evaluation was necessary. Initial orders were placed and patient was transferred to another provider in the ED who assumed care and finished evaluation and plan. - Related Data Allergies/Adverse Reactions: Penicillins Adverse Reaction (Verified 07/03/20 15:49) Past Medical History - Past Medical History Cardiac Medical History: Reports: Hx Congestive Heart Failure, Hx Hypercholesterolemia, Hx Hypertension Denies: Hx Coronary Artery Disease, Hx Heart Attack Pulmonary Medical History: Reports: Hx Sleep Apnea - CPAP at home Denies: Hx Asthma, Hx Bronchitis, Hx COPD, Hx Pneumonia Neurological Medical History: Denies: Hx Cerebrovascular Accident, Hx Seizures Endocrine Medical History: Denies: Hx Diabetes Mellitus Type 1, Hx Diabetes Mellitus Type 2, Hx Hyperthyroidism, Hx Hypothyroidism Renal/ Medical History: Denies: Hx Peritoneal Dialysis GI Medical History: Denies: Hx Cirrhosis, Hx Crohn's Disease, Hx Hepatitis, Hx Hiatal Hernia Musculoskeltal Medical History: Reports Hx Arthritis, Denies Hx Gout Skin Medical History: Denies Hx Eczema, Denies Hx Psoriasis Psychiatric Medical History: Denies: Hx Depression Infectious Medical History: Denies: Hx Hepatitis Past Surgical History: Reports: Hx Cardiac Catheterization, Hx Orthopedic Surgery - Left elbow, Left hip replacement - Immunizations Hx Diphtheria, Pertussis, Tetanus Vaccination: No Physical Exam - Vital signs Vitals: Temp Pulse Resp BP Pulse Ox 98.7 F 75 16 85/70 L 97 07/03/20 15:49 07/03/20 15:49 07/03/20 15:49 07/03/20 15:49 07/03/20 15:49 Course - Vital Signs Vital signs: Temp Pulse Resp BP Pulse Ox 98.7 F 75 16 85/70 L 97 07/03/20 15:49 07/03/20 15:49 07/03/20 15:49 07/03/20 15:49 07/03/20 15:49 Doctor's Discharge - Discharge [facility]errals: [facility] [[facility]] - Follow up as needed
--- NOTE | 2020-07-03 17:31 | RADIOLOGY REPORT (SQ) ---
EXAM DESCRIPTION: CHEST 2 VIEWS IMAGES COMPLETED DATE/TIME: 07/03/2020 4:03 pm REASON FOR STUDY: SOB, recent COVID. LVAD COMPARISON: 06/19/2020 EXAM PARAMETERS: NUMBER OF VIEWS: two views TECHNIQUE: Digital Frontal and Lateral radiographic views of the chest acquired. RADIATION DOSE: NA LIMITATIONS: none FINDINGS: LUNGS AND PLEURA: Lungs are hyperinflated. No opacities, masses or pneumothorax. No pleur al effusion. MEDIASTINUM AND HILAR STRUCTURES: No masses or contour abnormalities. HEART AND VASCULAR STRUCTURES: Heart normal size. No evidence for failure. BONES: No acute findings. HARDWARE: None in the chest. OTHER: No other significant finding. IMPRESSION: NO ACUTE RADIOGRAPHIC FINDING IN THE CHEST. TECHNICAL DOCUMENTATION: JOB ID: [id number] 2010 [employer]- All Rights Reserved Reading location - IP/workstation name: [email or web address]
--- NOTE | 2020-07-03 18:29 | ER Document Report ---
ED General - General Chief Complaint: General Weakness Stated Complaint: SHORTNESS OF BREATH Time Seen by Provider: 07/03/20 15:50 Primary Care Provider: [facility] [Primary Care Provider] - Follow up in 3-5 days Mode of Arrival: Ambulatory TRAVEL OUTSIDE OF THE [place] IN LAST 30 DAYS: No - HPI Notes: Patient is a 65-year-old male with a past medical history of LVAD placement in December at [facility] and hypertension who presents for a repeat Covid test. Patient was in the ER 2 weeks ago and had a full work-up. He was tested positive for Covid. Patient states that he was told to return in 2 weeks to get retested to make sure it has resolved. He has tried to call the [place], [facility], numerous other places but they would not retest him so he came to the ER. Patient is denying any complaints. He states his LVAD is functioning normally. He has not had any worsening shortness of breath. He denies any chest pain. Patient states he just wants to have a Covid retest. - Related Data Allergies/Adverse Reactions: Penicillins Adverse Reaction (Verified 07/03/20 15:49) Past Medical History - General Information source: Patient - Social History Smoking Status: Unknown if Ever Smoked Family History: Reviewed & Not Pertinent Patient has homicidal ideation: No - Past Medical History Cardiac Medical History: Reports: Hx Congestive Heart Failure, Hx Hypercholesterolemia, Hx Hypertension Denies: Hx Coronary Artery Disease, Hx Heart Attack Pulmonary Medical History: Reports: Hx Sleep Apnea - CPAP at home Denies: Hx Asthma, Hx Bronchitis, Hx COPD, Hx Pneumonia Neurological Medical History: Denies: Hx Cerebrovascular Accident, Hx Seizures Endocrine Medical History: Denies: Hx Diabetes Mellitus Type 1, Hx Diabetes Mellitus Type 2, Hx Hyperthyroidism, Hx Hypothyroidism Renal/ Medical History: Denies: Hx Peritoneal Dialysis GI Medical History: Denies: Hx Cirrhosis, Hx Crohn's Disease, Hx Hepatitis, Hx Hiatal Hernia Musculoskeletal Medical History: Reports Hx Arthritis, Denies Hx Gout Skin Medical History: Denies Hx Eczema, Denies Hx Psoriasis Psychiatric Medical History: Denies: Hx Depression Infectious Medical History: Denies: Hx Hepatitis Past Surgical History: Reports: Hx Cardiac Catheterization, Hx Orthopedic Surgery - Left elbow, Left hip replacement - Immunizations Hx Diphtheria, Pertussis, Tetanus Vaccination: No Review of Systems - Review of Systems Notes: CONSTITUTIONAL: No fever, fatigue or weight loss. SKIN: No rash. HENT: No congestion, ear pain, or sore throat. EYES: No recent vision problems or eye pain. CARDIOVASCULAR: No chest pain or edema. RESPIRATORY: No cough, congestion, or wheezing. Positive for residual shortness of breath from Covid. GASTROINTESTINAL: No abdominal pain, nausea, vomiting, bloody stools or diarrhea. MUSCULOSKELETAL: No joint pain or swelling. LYMPHATIC: No swollen glands. NEUROLOGIC: No seizures. No headache, focal weakness or sensory changes. HEMATOLOGIC: No unusual bruising or bleeding. PSYCHIATRIC: No depression or anxiety. Physical Exam - Vital signs Vitals: Temp Pulse Resp BP Pulse Ox 98.7 F 75 16 85/70 L 97 07/03/20 15:49 07/03/20 15:49 07/03/20 15:49 07/03/20 15:49 07/03/20 15:49 - General General appearance: Appears well In distress: None Notes: VITAL SIGNS: Within normal limits. Mean blood pressure is normal. On room air. GENERAL: No acute distress, non-toxic appearance. HEAD: Normal with no signs of head trauma. EYES: Conjunctiva normal, no discharge. EARS: Hearing grossly intact. NECK: Normal range of motion, no tenderness. CHEST: Clear breath sounds bilaterally. CARDIAC: Normal LVAD mechanical hum. LVAD connection is normal. No alarms. VASCULAR: No Edema. ABDOMEN: Normal and soft with no tenderness, no masses or pulsatile masses. MUSCULOSKELETAL: Good range of motion of all major joints. Extremities without clubbing, cyanosis or edema. NEUROLOGICAL: Alert and oriented x 3. No focal sensory or strength deficits. Speech normal. Follows commands appropriately. PSYCHIATRIC: Normal Affect, judgement and mood. SKIN: Normal appearance with no rashes or lesions. Course - Re-evaluation Re-evalutation: 07/03/20 21:18 I was asked to see the patient by nursing staff because he wanted to leave before being seen. Patient is declining any lab work. He states he is only here for a Covid test and he feels fine. He only wants to know if the Covid has resolved. His LVAD appears to be functioning normally. I did discuss with him that I am unable to assess any other causes for his shortness of breath without blood work. He states he understands this. He states he feels fine and is not having any worsening shortness of breath or weakness. He states he only wants this Covid test done. I had a very long discussion with him. He understands the risks and is declining any further work-up. I instructed him that he will be called with the results of his Covid test. Patient is very agreeable. Mean blood pressure is normal. He ambulated around the ED and pulse ox remained 100% on room air. 07/03/20 21:21 07/03/20 21:22 07/03/20 21:29 - Vital Signs Vital signs: Temp Pulse Resp BP Pulse Ox 98.5 F 88 20 94/70 L 100 07/03/20 19:20 07/03/20 19:20 07/03/20 19:20 07/03/20 19:20 07/03/20 19:20 - Laboratory Results Critical Laboratory Results Reviewed: No Critical Results - Radiology Results Critical Radiology Results Reviewed: No Critical Results - EKG Interpretation by Me Additional EKG results interpreted by me: 07/03/20 21:20 EKG is very difficult to interpret due to the LVAD. There is a poor baseline. No ST changes. No significant change from previous. 07/03/20 21:21 Discharge - Discharge Clinical Impression: Shortness of breath, COVID-19 Condition: Stable Disposition: HOME, SELF-CARE Instructions: COVID-19 Guidance for Persons Under Investigation Additional Instructions: You were retested for Covid today. You will be called with the results. Please self isolate until you are called with a negative result. Please return to the ER immediately for any shortness of breath, fevers, any worsening symptoms. Please follow-up with your LVAD center at [facility]. You can take a multivitamin. Referrals: [facility] [Primary [facility]] - Follow up in 3-5 days
[2020-07-03 19:02] VITALS: BP 94/70
--- NOTE | 2020-07-03 19:27 | EKG REPORT ---
SEVERITY:- ABNORMAL ECG - ATRIAL FIBRILLATION RUN OF VENTRICULAR PREMATURE COMPLEXES NONSPECIFIC INTRAVENTRICULAR CONDUCTION DELAY LATERAL INJURY, PROBABLE EARLY ACUTE INFARCT CONSIDER ANTEROSEPTAL INFARCT : Confirmed by: Isaias Garrido MD 03-Jul-2020 19:26:58
== END 2020-07-03 19:20 | disposition home or self-care (01) ==
LOC: ER 15:41
DX: U07.1 COVID-19 (principal); R06.02 Shortness of breath; I10 Essential (primary) hypertension; Z95.811 Presence of heart assist device
CPT/HCPCS: 93005; 99285; 87635; 71046; 93010; C9803